=== PATIENT | male | born 1970 | race Caucasian/White ===

== ENCOUNTER → 2016-08-09 | Outpatient (CLI) | payer BC ==
--- NOTE | 2016-08-09 06:18 | EKG ---
[address] [place] [address] [place] [address] Measurements Intervals [place] Rate: 97 P: 60 HI: 175 QRS: 72 QRSD: 98 T: -28 QT: 328 QTc: 382 Interpretive Statements SINUS RHYTHM POSSIBLE SEPTAL MYOCARDIAL INFARCTION MODERATE T-WAVE ABNORMALITY, CONSIDER INFERIOR ISCHEMIA Compared to ECG 03/27/2016 07:27:37 Myocardial infarct finding still present T-wave abnormality still present Possible ischemia still present Electronically Signed On 08-09-16 09:05:10 [facility] by Chevy Caraballo [email or web address]
[2016-08-09 06:36] LABS: BLOOD UREA NITROGEN 12 mg/dL (7-22); CHLORIDE 105 meq/L (98-112); CREATININE 0.8 mg/dL (0.70-1.50); EST GLOMERULAR FILTRATION > 60 (>60 ml/min/1.73m(2)); POTASSIUM 4.2 meq/L (3.8-5.2); SODIUM 141 meq/L (135-145)
[2016-08-09 06:37] LABS: GLUCOSE 82 mg/dL (78-110); HDL CHOLESTEROL 56 mg/dL (40-150); TRIGLYCERIDES 230 mg/dL (44-200)
[2016-08-09 06:51] LABS: ASPARTATE AMINO TRANSFERASE 79 IU/L (21-57); BILIRUBIN,TOTAL 0.7 mg/dL (0.3-1.2)
== END ==
LOC: EKG 06:00
PROVIDERS: ATTEND Nurse Practitioner Family
DX: I47.1 Supraventricular tachycardia (principal); E78.5 Hyperlipidemia, unspecified; I10 Essential (primary) hypertension
CPT/HCPCS: 36415; 80048; 82247; 82465; 82550; 82977; 83718; 84075; 84450; 84460; 84478; 93005; 93010

== ENCOUNTER → 2016-12-28 | Outpatient (CLI) | payer BC ==
--- NOTE | 2016-12-28 07:09 | PE ---
[facility] Interpretive Statements Electronically Signed On [email or web address] 08:06:53 [facility] by Douglas De Leon MD [email or web address]
== END ==
LOC: RT 06:04
PROVIDERS: ATTEND Family Medicine
DX: F17.200 Nicotine dependence, unspecified, uncomplicated (principal)
CPT/HCPCS: 94060

== ENCOUNTER → 2017-02-06 | Outpatient (CLI) | payer BC ==
[2017-02-06 06:50] LABS: BLOOD UREA NITROGEN 9 mg/dL (7-22); BUN/CREATININE RATIO 11.25 (6-20); CALCIUM 8.9 mg/dL (8.7-10.7); CHOL/HDL RATIO 3.38 RATIO (0-4.0); EST GLOMERULAR FILTRATION > 60 (>60 ml/min/1.73m(2)); GAMMA GLUTAMYL TRANSPEPTIDASE 64 IU/L (8-78); HDL CHOLESTEROL 54 mg/dL (40-150); SERUM CHOLESTEROL 183 mg/dL (120-200)
== END ==
LOC: LAB 06:12
PROVIDERS: ATTEND Nurse Practitioner Family
DX: E78.5 Hyperlipidemia, unspecified (principal); I10 Essential (primary) hypertension
CPT/HCPCS: 36415; 80048; 82247; 82465; 82550; 82977; 83718; 84075; 84450; 84460; 84478